=== PATIENT | female | born 1960 | race Caucasian/White ===

== ENCOUNTER → 2016-12-28 | Outpatient (CLI) | payer OTHER ==
--- NOTE | 2016-12-28 13:19 | Diagnostic Imaging Report ---
PROCEDURE: US Carotid Duplex Bilateral. TECHNIQUE: Multiple real-time grayscale images were obtained over the carotid arteries in various projections bilaterally. Additional duplex Doppler and color Doppler images were also obtained. INDICATION: Hypertension. COMPARISON: None available. TECHNIQUE: High-resolution grayscale and color-flow imaging of the bilateral carotid artery systems was performed. FINDINGS: Right carotid circulation: The right common carotid artery is normal in course and caliber. Right common carotid artery demonstrates normal low resistant waveforms with peak systolic velocity of 68 cm/s. There is no atherosclerotic plaquing in the proximal right internal carotid artery. No elevated velocities in the right ICA, with maximal peak systolic velocity proximally measuring 60 cm/s. Minimal atherosclerosis at the origin of the right external carotid artery which remains widely patent and has a peak systolic velocity of 60 cm/s. Left carotid circulation: The left common carotid artery is normal in course and caliber. Left common carotid artery demonstrates normal low resistant waveforms with maximal peak systolic velocity of 72 cm/s. There is a small amount of calcified atherosclerotic plaque in the proximal ICA which results in less than 50% luminal narrowing by grayscale imaging. The maximal peak systolic velocity in the proximal ICA is 53 cm/s. Low resistant waveforms are present in the left internal carotid artery. No parvus tardus waveforms are seen in the distal internal carotid artery. Proximal left ECA is widely patent with expected high resistant waveforms and peak systolic velocity of 70 cm/s. Vertebral arteries: Flow in the bilateral vertebral arteries is antegrade. IMPRESSION: 1. Minimal calcified atherosclerotic plaque at the origin of the left ICA results in less than 50% stenosis. 2. Normal right internal carotid artery. 3. Patent bilateral vertebral arteries with antegrade flow. Dictated by: Dictated on workstation # [id number]
== END ==
LOC: RAD 10:39
PROVIDERS: ATTEND Nurse Practitioner Family
DX: I10 Essential (primary) hypertension (principal)
CPT/HCPCS: 93880

== ENCOUNTER → 2017-11-01 | Outpatient (CLI) | payer OTHER ==
--- NOTE | 2017-11-01 12:11 | Diagnostic Imaging Report ---
Ultrasound of the liver. INDICATION: Hepatitis C. FINDINGS: The visualized portions of the pancreas appear unremarkable. The liver is fairly homogeneous with no focal lesion. Hepatopetal flow in the main portal vein is seen. The gallbladder demonstrates no stones or wall thickening. The CBD is 4 mm in caliber. The right kidney is 11.1 cm in length with no hydronephrosis or focal lesion. There is no fluid collection in the upper right abdomen. IMPRESSION: Unremarkable exam. Dictated by: Dictated on workstation # [id number]
== END ==
LOC: RAD 09:07
PROVIDERS: ATTEND Pediatrics
DX: B18.2 Chronic viral hepatitis C (principal)
CPT/HCPCS: 76705

== ENCOUNTER → 2018-07-12 | Outpatient (CLI) | payer MEDICAID ==
[~2018-07-12] VITALS: Ht 160 cm; Wt 61.2 kg
[~2018-07-12] MED LIST: CATHETER FLUSH 10 ML SYR IV PRN; REGADENOSON 0.4 MG/5 ML SYR (LEXISCAN) IV ONE
[2018-07-12 08:59] VITALS: BP 142/86
--- NOTE | 2018-07-17 22:07 | STRESS TEST ---
DATE OF SERVICE: 07/12/2018 RESTING AND POST REGADENOSON TECHNETIUM-99M TETROFOSMIN SPECT CT IMAGING ORDERING PHYSICIAN: Mickie Muse APRN PRIMARY PHYSICIAN: Mariela Pozo APRN CLINICAL DIAGNOSES: Hypertension, shortness of breath, palpitations. Baseline images were carried out after injection of 10.79 mCi technetium-99m Tetrofosmin. This was followed by 0.4 mg regadenoson and 28.7 mCi technetium-99m Tetrofosmin for stress imaging. The electrocardiogram showed sinus rhythm at baseline and it did not change significantly with the regadenoson infusion. The patient tolerated the procedure well. Review of images at rest and following stress does not indicate any significant perfusion defects consistent with significant myocardial ischemia or infarction. Gated images show normal global left ventricular systolic function with normal regional wall motion. Left ventricular ejection fraction is calculated to be 76%. Left ventricular end diastolic volume is 47 mL. TID is absent (1.04). CONCLUSIONS: 1. No evidence of any significant myocardial ischemia or infarction is seen. 2. Normal regional wall motion. 3. Normal global left ventricular systolic function with a calculated ejection fraction of 76%. 4. Normal left ventricular cavity size. Job ID: [id number] DocumentID: [id number] Dictated Date: 07/17/2018 18:17:50 Proctologist Date: 07/17/2018 22:06:26 Dictated By: TWYLA WATERS MD, MA, FACP, FACC,
== END ==
LOC: CARD 06:55
PROVIDERS: ATTEND Nurse Practitioner Family
DX: I10 Essential (primary) hypertension (principal)
CPT/HCPCS: 78452; 93017

== ENCOUNTER 2019-07-22 08:35 | Day surgery (SDC) | payer MEDICARE, MEDICAID ==
[~2019-07-22] VITALS: Ht 160 cm; Wt 63.5 kg
[2019-07-22] VITALS (14 sets, daily range): BP systolic 109–152; BP diastolic 79–140
[2019-07-22] MEDS ORDERED: HEParin (CATH LAB) 2,000 ML IV ONE (08:36)
[2019-07-22] MEDS ORDERED: NS IV 1000 ML 1,000 ML ONE (08:36)
[2019-07-22] MEDS ORDERED: LIDOCAINE 1% INJ 20 ML 20 ML VIAL ONE (08:36)
[2019-07-22] MEDS ORDERED: NS IV 1000 ML 1,000 ML IV SCH ×2 (08:45→11:15)
[2019-07-22 09:00] LABS: MEAN PLATELET VOLUME 9.8 FL (7.4-10.4); RED CELL DISTRIBUTION WIDTH 12.3 % (10.0-14.5); WHITE BLOOD COUNT 6.9 10^3/uL (4.3-11.0)
[2019-07-22 09:21] LABS: INR 0.9 (0.8-1.4); PROTHROMBIN TIME PATIENT 12.8 SEC (12.2-14.7)
[2019-07-22 09:22] LABS: ALANINE AMINOTRANSFERASE 14 U/L (0-55); ALBUMIN 4.5 GM/DL (3.2-4.5); ALKALINE PHOSPHATASE 94 U/L (40-136); BILIRUBIN,TOTAL 0.4 MG/DL (0.1-1.0); BUN/CREATININE RATIO 20; CALCIUM 10.7 MG/DL (8.5-10.1); CARBON DIOXIDE 29 MMOL/L (21-32); CHLORIDE 103 MMOL/L (98-107); CHOLESTEROL 157 MG/DL (< 200); CREATININE SERUM 0.85 MG/DL (0.60-1.30); GFR ESTIMATED > 60; GLUCOSE 83 MG/DL (70-105); HDL CHOLESTEROL 76 MG/DL (40-60); POTASSIUM 3.4 MMOL/L (3.6-5.0); SODIUM 143 MMOL/L (135-145); TOTAL PROTEIN 7.9 GM/DL (6.4-8.2); TRIGLYCERIDES 69 MG/DL (<150); VLDL CHOLESTEROL 14 MG/DL (5-40)
[2019-07-22] MEDS ORDERED: ASPI-586 PO (09:45)
[2019-07-22] MEDS ORDERED: METO50TA15 PO (09:45)
[2019-07-22] MEDS ORDERED: VARE1TAB22 PO (09:45)
[2019-07-22] MEDS ORDERED: ATOR10TA66 PO (09:45)
[2019-07-22] MEDS ORDERED: ALB0.5V INH (09:45)
[2019-07-22] MEDS ORDERED: HYDR-3923 PO (09:45)
[2019-07-22] MEDS ORDERED: CELE-63 PO (09:45)
[2019-07-22] MEDS ORDERED: TERI202.4P SQ (09:45)
[2019-07-22] MEDS ORDERED: CALC600T12 PO (09:45)
[2019-07-22] MEDS ORDERED: ZOLP5TAB7 PO (09:45)
[2019-07-22] MEDS ORDERED: RT-ALBUINH IH (09:45)
[2019-07-22] MEDS ORDERED: CYCL10TA9 PO (09:45)
[2019-07-22] MEDS ORDERED: ACHD5005 PO (09:45)
[2019-07-22] MEDS ORDERED: FLUT1BLS3 IH (09:45)
[2019-07-22] MEDS ORDERED: AMLO5TAB9 PO (09:45)
[2019-07-22] MEDS ORDERED: fentaNYL INJECTION 100 MCG/2 ML AMP ONE ×2 (11:47→12:20)
[2019-07-22] MEDS ORDERED: MIDAZOLAM 5 MG/5 ML (VERSED) VIAL ONE (11:47)
[2019-07-22] MEDS ORDERED: HEParin 1000 UNIT/ML (10ML VIAL) FOR BOLUS ONE (12:14)
[2019-07-22] MEDS ORDERED: CLOPIDOGREL 300 MG (PLAVIX) TABLET PO ONE (13:06)
[2019-07-22] MEDS ORDERED: ASPIRIN 81 MG CHEW (CHILDREN'S ASA) ONE (13:06)
[2019-07-22] MEDS ORDERED: HYDROcodone/APAP 5 MG/325 MG (LORTAB) TAB PO PRN (13:15)
[2019-07-22] MEDS ORDERED: PATIENT MAY USE OWN MEDS, ALL PO SCH (13:15)
[2019-07-22] MEDS ORDERED: RT-ALBUTEROL SULF 2.5 MG/3 ML PRE-MIX VIAL IH SCH (13:15)
--- NOTE | 2019-07-22 13:20 | NUR ---
JANET CABRERA admitted to room CU3-1, with an admitting diagnosis of HTN, on 07/22/19 from [facility] via BED, accompanied by STAFF.JANET CABRERA introduced to surroundings, call light, bed controls, phone, TV, temperature control, lights, meal times, smoking policy, visitor policy, side rail policy, bathrooms and showers. Patient Rights given to patient in the handbook. JANET CABRERA verbalizes understanding that [facility] is not responsible for the loss or damage to any personal effects or valuables that are kept in the patients posession during their hospitalization. The following Patient Care Plans were discussed with the PT: Discharge Planning, FLUID VOLUME EXCESS,KNOWLEDGE DEFICIT, and ALTERED CEREBRAL TISSUE PERFUSION. JANET CABRERA verbalizes understanding of Interdisciplinary Patient Education. Patient and family were informed about the Rapid Response Team and its purpose.
--- NOTE | 2019-07-22 13:54 | NUR ---
1345 DUE TO CHANGES IN STAFFING CARE OF PT TO THIS RN. REPORT RECEIVED AT BEDSIDE FROM Liz ORTIZ RN. RIGHT GROIN SITE DRESSING D/I, PULSES +/+, AT BEDSIDE. NO NEEDS NOTED AT THIS TIME WILL CONTINUE TO MONITOR.
--- NOTE | 2019-07-22 13:55 | NUR ---
REPORT GIVEN TO PAVAN PEARSON WHO ASSUMES CARE OF PT FOR REMAINDER OF SHIFT. NO QUESTIONS/CONCERNS VOICED.
[2019-07-22] MEDS: NS IV 1000 ML 1,000 ML IV SCH ×2 (14:08→23:10)
--- NOTE | 2019-07-22 14:19 | Cardiac Procedure Note-CS/ASA ---
Pre-Procedure Note Pre-Op Procedure Note H&P Reviewed The H&P was reviewed, patient examined and no changes noted. Date H&P Reviewed: Jul 22, 2019 Time H&P Reviewed: 12:15 Conscious Sedation Pre-Proced Time 12:15 ASA Score 3 For ASA 3 and 4: Consider anesthesia and medical clearance. Also, for patients with a history of failed moderate sedation consider anesthesia. Airway Lungs Heart ASA score ASA 1: a normal healthy patient ASA 2: a patient with a mild systemic disease (mid diabetes, controlled hypertension, obesity ASA 3: a patient with a severe systemic disease that limits activity (angina, COPD, prior Myocardial infarction) ASA 4: a patient with an incapacitating disease that is a constant threat to life (CHF, renal failure) ASA 5: a moribund patient not expected to survive 24 hrs. (ruptured aneurysm) ASA 6: a declared brain- patient whose organs are being harvested. For emergent operations, add the letter E after the classification Mallampati Classification Grade 2 Sedation Plan Analgesia, Amnesia, Plan communicated to team members, Discussed options with patient/fam, Discussed risks with patient/fam The patient is an appropriate candidate to undergo the planned procedure, sedation, and anesthesia. The patient immediately re-assessed prior to indication. TWYLA WATERS MD FACP FAC CCDS Jul 22, 2019 14:19
[2019-07-22] MEDS ORDERED: RT-ALBUTEROL SULF 2.5 MG/3 ML PRE-MIX VIAL ONE (14:58)
--- NOTE | 2019-07-22 16:08 | OPERATIVE REPORT ---
DATE OF SERVICE: 07/22/2019 ABDOMINAL AORTIC AND RENAL ARTERY ANGIOGRAPHY AND RENAL ARTERY INTERVENTION INDICATIONS: The patient is a 59-year-old lady who has uncontrolled hypertension despite multiple blood pressure medications. She recently had CT angiography of the renal arteries, which indicated severe right renal artery stenosis. Because of uncontrolled hypertension and there is evidence of renovascular hypertension, renal artery angiography was carried out today. An informed consent was obtained for renal artery intervention, if needed. DESCRIPTION OF PROCEDURE: She was brought to the cardiac catheterization laboratory in a fasting state. Right groin was prepared and draped in the usual sterile fashion. Lidocaine 1% was used for local anesthesia. Modified Seldinger technique was used to advance a 5-Maori sheath into the right femoral artery. We used a 5-Maori JR4 catheter to carry out selective angiography of both renal arteries. We used a 5-Maori pigtail catheter to carry out abdominal aortic angiography. Percutaneous Intervention was then carried out to the right renal artery as described below. PERCUTANEOUS INTERVENTION OF THE RIGHT RENAL ARTERY: The right renal artery was exhibiting approximately 80% ostial stenosis. We exchanged the sheath over a wire for a 6-Maori sheath. We gave 6000 units of intravenous heparin. We used a 6-Maori [facility] guide catheter to engage the right coronary artery. We advanced a Cho[employer] floppy wire across the lesion and the tip was placed in the distal vessel. We planned on direct stenting by [facility] shorter stent, it was a 12 mm, when it was advanced into position, it appeared too long because the renal arteries main stem is small and it bifurcates quickly into two large branches. The stent would have stressed across the bifurcation and a jailed one branch. Therefore, we decided not to stent. We removed the stent. We advanced NC Quantum 4.5 x 15 mm balloon. This was carefully positioned at the lesion. The middle part of the balloon was at the lesion when the balloon was inflated to 12 atmospheres. Full balloon expansion was achieved. Subsequent angiography revealed that the stenosis had improved from approximately 80% to approximately 30%. There was no dissection or complication. The balloon and the wire were removed. The catheter was removed. We then carried out angiography of the right femoral artery through the sheath and Mynx was used to achieve hemostasis. She tolerated the procedure well. ABDOMEN AORTIC ANGIOGRAPHY: Abdominal aortic angiography indicated abdominal aortic calcification without significant abdominal aortic stenosis or aneurysm. The mesenteric vessels were identified. The renal arteries were also identified. The right renal artery was exhibiting considerable disease as described below. SELECTIVE LEFT RENAL ARTERY ANGIOGRAPHY: Selective left renal artery angiography did not indicate any significant stenosis of the left renal artery. SELECTIVE ANGIOGRAPHY OF THE RIGHT RENAL ARTERY: Prior to balloon angioplasty of the ostium of the right renal artery, there was approximately 80% stenosis. Following balloon angioplasty of the ostium of the right renal artery, there is approximately 30% stenosis. The rest of the renal artery on the right side does not exhibit significant disease. CONCLUSIONS: 1. Atherosclerosis of abdominal aorta without significant aneurysm or stenosis. 2. An 80% right renal artery stenosis to which successful balloon angioplasty was carried out with reduction of stenosis to less than 30%. DISCUSSION AND RECOMMENDATIONS: Antiplatelet therapy is being continued. Risk factor modification has been advised. Job ID: [id number] DocumentID: [id number] Dictated Date: 07/22/2019 13:01:53 Iron Worker Foreman Date: 07/22/2019 16:08:01 Dictated By: TWYLA WATERS MD, MA, FACP, FACC,
[2019-07-22] MEDS: CALCIUM CARBONATE 600 MG (CALCARB) TAB PO SCH (20:35)
[2019-07-22] MEDS: CYCLOBENZAPRINE 10 MG (FLEXERIL) TAB PO SCH (20:35)
[2019-07-22] MEDS: meTOprolol TARTRATE 50 MG (LOPRESSOR) TAB PO SCH (20:36)
[2019-07-22] MEDS ORDERED: RT-ALBUTEROL SULF 2.5 MG/3 ML PRE-MIX VIAL INH SCH (21:00)
[2019-07-22] MEDS ORDERED: NON-FORMULARY MEDICATION 1 EA EA (Varenicline Tartrate (Chantix) 1 MG) PO SCH (21:00)
[2019-07-22] MEDS ORDERED: ZOLPIDEM 5 MG (AMBIEN) TAB PO SCH (21:00)
[2019-07-22] MEDS ORDERED: RT-ALBUTEROL SULF 2.5 MG/3 ML PRE-MIX VIAL INH PRN (21:00)
[2019-07-22] MEDS ORDERED: CALCIUM CARBONATE 600 MG (CALCARB) TAB PO SCH (21:00)
[2019-07-23] VITALS: BP 118/78
[2019-07-23 03:41] LABS: HEMOGLOBIN 10.6 G/DL (11.5-16.0); MEAN PLATELET VOLUME 10.2 FL (7.4-10.4); RED CELL DISTRIBUTION WIDTH 12.2 % (10.0-14.5); WHITE BLOOD COUNT 6.4 10^3/uL (4.3-11.0)
[2019-07-23 03:52] LABS: BUN/CREATININE RATIO 19; CALCIUM 9.9 MG/DL (8.5-10.1); CARBON DIOXIDE 26 MMOL/L (21-32); CHLORIDE 105 MMOL/L (98-107); CREATININE SERUM 0.91 MG/DL (0.60-1.30); GFR ESTIMATED > 60; GLUCOSE 100 MG/DL (70-105); POTASSIUM 4.3 MMOL/L (3.6-5.0); SODIUM 142 MMOL/L (135-145)
[2019-07-23 04:00] VITALS: BP 131/87
[2019-07-23 08:29] VITALS: BP 128/83
--- NOTE | 2019-07-23 08:32 | NUR ---
Report received and care assumed by this RN. Pt ambulatory in room without difficulties. She denies any complaints. States she is ready to go home. Pt brought own meds and will review these with her. Right groin site soft with distal pulses present. Small distal bruise noted. Call light within reach, all needs addressed.
[2019-07-23] MEDS ORDERED: NON-FORMULARY MEDICATION 1 EA EA (Fluticasone/Umeclidin/Vilanter (Trelegy Ellipta 100-62.5 IH SCH (09:00)
[2019-07-23] MEDS ORDERED: ASPIRIN 81 MG CHEW (CHILDREN'S ASA) PO SCH (09:00)
[2019-07-23] MEDS ORDERED: hydrALAZINE (APRESOLINE) 25 MG TAB PO SCH (09:00)
[2019-07-23] MEDS ORDERED: amLODIPine 5 MG (NORVASC) TAB PO SCH (09:00)
[2019-07-23] MEDS ORDERED: TERIPARATIDE 600 MCG/2.4 ML (FORTEO) SYR SQ SCH (09:00)
[2019-07-23] MEDS ORDERED: CLOPIDOGREL 75 MG (PLAVIX) TABLET PO SCH (09:00)
[2019-07-23] MEDS ORDERED: CELECOXIB 100 MG (CeleBREX) CAP PO SCH (09:00)
[2019-07-23] MEDS ORDERED: CLOP75TA28 PO (09:29)
--- NOTE | 2019-07-23 09:30 | Discharge Inst-Cardiology ---
Discharge Inst-Cardiac Discharge Medications New Medications: Clopidogrel Bisulfate (Clopidogrel) 75 Mg Tablet 75 MG PO DAILY, #30 TAB 5 Refills Continued Medications: Albuterol Sulfate (Albuterol Sulfate) 2.5 Mg/0.5 Ml Vial.neb 2.5 MG INH Q6H for SHORTNESS OF BREATH, EACH Albuterol Sulfate (Proair Hfa) 1 Puff Puff 2 PUFF IH Q4H, PUFF 1 PUFF = 90 MCG Amlodipine Besylate (Amlodipine Besylate) 5 Mg Tablet 5 MG PO DAILY, TAB Aspirin (Aspir 81) 81 Mg Tablet.dr 81 MG PO DAILY, TAB Atorvastatin Calcium (Atorvastatin Calcium) 10 Mg Tablet 10 MG PO HS, TAB Calcium Carbonate (Calcium) 600 Mg Tablet 600 MG PO BID, TAB Celecoxib (Celecoxib) 200 Mg Capsule 200 MG PO DAILY, CAP Cyclobenzaprine HCl (Cyclobenzaprine HCl) 10 Mg Tablet 10 MG PO TID, TAB Fluticasone/Umeclidin/Vilanter (Trelegy Ellipta 100-62.5-25) 1 Each Blst.w.dev 1 EACH IH DAILY Hydralazine HCl (Hydralazine HCl) 25 Mg Tablet 12.5 MG PO DAILY, TAB Hydrocodone Bit/Acetaminophen (Hydrocodone/Acetaminophen 5/325mg Tablet) 1 Tab Tab 1 TAB PO Q4-6HR PRN for PAIN-MODERATE for 7 Days, TAB Metoprolol Tartrate (Metoprolol Tartrate) 50 Mg Tablet 50 MG PO BID, TAB Teriparatide (Forteo) 600 Mcg/2.4 Ml Syr 600 MCG SQ DAILY, SYR Varenicline Tartrate (Chantix) 1 Mg Tablet 1 MG PO BID, TAB Zolpidem Tartrate (Zolpidem Tartrate) 5 Mg Tablet 5 MG PO HS, TAB New, Converted or Re-Newed RX: Transmitted to Pharmacy Patient Instructions Patient Instructions: Please schedule follow up appointment to see Dr. Araya in one month IVÁN LAI Jul 23, 2019 09:30
[2019-07-23] MEDS: CALCIUM CARBONATE 600 MG (CALCARB) TAB PO SCH (09:39)
[2019-07-23] MEDS: CYCLOBENZAPRINE 10 MG (FLEXERIL) TAB PO SCH (09:40)
[2019-07-23] MEDS: meTOprolol TARTRATE 50 MG (LOPRESSOR) TAB PO SCH (09:40)
[2019-07-23 12:51] VITALS: BP 137/89
--- NOTE | 2019-07-23 13:49 | Cardiology Discharge Summary ---
Diagnosis/Chief Complaint Date of Admission 07/22/2019 Date of Discharge 07/23/2019 Admission Diagnosis Refractory renal vascular hypertension. Final/Discharge Diagnosis Successful balloon angioplasty of right renal artery stenosis. Chief Complaint/HPI Chief Complaint/HPI This is a 59-year-old lady with refractory renal vascular hypertension. Discharge Summary Procedures Successful balloon angioplasty of the right renal artery done by Dr. Araya yesterday. Discharge Physical Examination Stable. Hospital Course Was the Problem List Reviewed?: Yes Unremarkable. Blood pressure today is systolic blood pressure 128 mmHg. Discussion & Recommendations Discussion Discharge instructions discussed. Patient will follow with Dr. Araya. Follow up appt.: Follow-up with Dr. Araya. Dicharge Diet: Cardiac Diet Activity as Tolerated: Yes Home Medications Reviewed patient Home Medication Reconciliation performed by pharmacy medication reconciliations architecture technician and/or nursing. Patients Allergies have been reviewed. Discharge Home Medications: Reviewed and agree with Discharge Medication list on patient's Discharge Instruction sheet Condition at discharge Stable. Instructions to patient/family Discussed with patient and family. Tello HINES MD Jul 23, 2019 13:49
== END 2019-07-23 12:51 | disposition home or self-care (01) ==
LOC: CATH 08:35 → ICU 13:20 → CATH 07-23 12:51
PROVIDERS: ATTEND Internal Medicine Cardiovascular Disease
DX: I70.1 Atherosclerosis of renal artery (principal); I10 Essential (primary) hypertension; J44.9 Chronic obstructive pulmonary disease, unspecified; Z79.82 Long term (current) use of aspirin; Z79.899 Other long term (current) drug therapy; Z82.49 Family history of ischemic heart disease and other diseases of the circulatory system; Z83.3 Family history of diabetes mellitus; Z80.9 Family history of malignant neoplasm, unspecified; Z87.891 Personal history of nicotine dependence
CPT/HCPCS: 36252; 36415; 37246; 75625; 80048; 80053; 80061; 85027; 85610; 85730; 87081; 93005; 94640

== ENCOUNTER → 2022-08-16 | Outpatient (CLI) | payer MEDICAID, MEDICARE ==
[~2022-08-16] MED LIST changes: +ACHD5005 PO; +ALB0.5V INH; +AMLO-250 PO; +ASPI-586 PO; +ATOR10TA66 PO; +CALC600T91 PO; -CATHETER FLUSH 10 ML SYR IV PRN; +CELE-63 PO; +CLOP75TA28 PO; +CYCL10TA25 PO; +FLUT1BLS3 IH; +HYDR-3923 PO; +METO50TA15 PO; -REGADENOSON 0.4 MG/5 ML SYR (LEXISCAN) IV ONE; +RT-ALBUINH IH; +TERI202.4P SQ; +VARE1TAB22 PO; +ZOLP5TAB7 PO
== END ==
LOC: CARD 13:15
PROVIDERS: ATTEND Nurse Practitioner Family
DX: R06.02 Shortness of breath (principal)
CPT/HCPCS: 93306